=== PATIENT | male | born 1980 | race Caucasian/White ===

== ENCOUNTER 2017-02-14 23:54 | Emergency (ER) | payer BC ==
[~2017-02-14 23:54] MED LIST: CIPRO PO; LORTAB 5/500 TA1 TA1 PO; METRONIDAZOLE PO; NO MEDICATIONS; NORFLEX100 M1 PO; PREDNISONE PO; PREDNISONE50 MG PO; TORADOL10 MG PO
== END 2017-02-15 03:30 | disposition home or self-care (01) ==
LOC: CED 23:54
DX: S46.912A Strain of unspecified muscle, fascia and tendon at shoulder and upper arm level, left arm, initial encounter (principal); F17.200 Nicotine dependence, unspecified, uncomplicated; F41.9 Anxiety disorder, unspecified; Z79.899 Other long term (current) drug therapy; V41.9XXA Unspecified car occupant injured in collision with pedal cycle in traffic accident, initial encounter; Y92.410 Unspecified street and highway as the place of occurrence of the external cause
CPT/HCPCS: 99283